=== PATIENT | female | born 1965 | race Caucasian/White ===

== ENCOUNTER 2016-10-26 17:59 | Emergency (ER) | payer BC, OTHER ==
[~2016-10-26] VITALS: Ht 157.5 cm; Wt 69.3 kg
[2016-10-26 18:08] VITALS: TEMP 36.9; Ht 157.5 cm; Wt 69.3 kg
[2016-10-26] MEDS ORDERED: SODIUM CHLORIDE 0.9% 1000ML 1,000 ML IV STA (18:50)
[2016-10-26] MEDS ORDERED: PROCHLORPERAZINE 5 MG/ML 2 ML VIAL IV STA (18:50)
[2016-10-26] MEDS ORDERED: DiphenhydrAMINE HCL 50 MG/ML VIAL IV STA (18:50)
[2016-10-26 20:08] VITALS: BP 148/73; PULSE 77; O2SAT 97
[2016-10-26] MEDS ORDERED: DIPH25CA65 PO (20:15)
[2016-10-26] MEDS ORDERED: CETI10TA84 PO (20:15)
[2016-10-26] MEDS ORDERED: ACET-1256 PO (20:15)
[2016-10-26] MEDS ORDERED: IBUP-1277 PO (20:15)
[2016-10-26] MEDS ORDERED: MONT1TAB3 PO (20:15)
--- NOTE | 2016-10-26 21:38 | EMERGENCY ROOM VISIT NOTE ---
History Report prepared by Ishmael: Tristen Weir Under the Supervision of: Dr. Lemuel Thomason M.D. First contact with patient: 18:42 Chief Complaint: HEADACHE Stated Complaint: VOMITING, MIGRAINE History of Present Illness The patient is a 51 year old female who presents to the Emergency Room with complaints of persistent migraine that started 12 hours ago. The patient describes the discomfort as throbbing and notes that it is on the whole top of her head. The discomfort is worse with light and sound. She also complains of vomiting. The patient denies fever or chance of . She takes prescription extra strength Tylenol for her symptoms but they did not help relieve her discomfort today. The patient has a history of migraine headaches but is not on any medications for them. Source of History: patient Onset: 12 hours ago Position: head Quality: other (throbbing) Timing: other (persistent) Modifying Factors (Worsening): other (light and sound) Associated Symptoms: + vomiting, No fevers Note: Denies: chance of Review of Systems See HPI for pertinent positives & negatives. A total of 10 systems reviewed and were otherwise negative. Family History Cancer Social History Smoking Status: Never Smoker Drug Use: none Marital Status: Housing Status: lives with family Occupation Status: employed Current/Historical Medications Scheduled Acetaminophen (Tylenol), 2 TAB PO Q6 Cetirizine (Zyrtec), 10 MG PO DAILY Diphenhydramine Hcl (Benadryl Allergy), 1 CAP PO HS Ibuprofen (Advil), 200-600 MG PO Q4H Miscellaneous Medications Montelukast Sodium (Singulair), 10 MG PO Allergies Coded Allergies: POLLEN (Verified Allergy, Intermediate, WATERY EYES, CONGESTION (MEHRAN AT TIMES), 10/26/16) Latex1 -Allergic Contact Dermititis (Verified Allergy, Mild, ITCHY SKIN, ) Physical Exam Vital Signs Date Time Temp Pulse Resp B/P Pulse Ox O2 Delivery O2 Flow Rate FiO2 10/26/16 20:08 77 18 148/73 97 10/26/16 18:08 36.9 79 18 132/75 99 Room Air Physical Exam Constitutional: Vital signs reviewed. Eyes: Pupils are equal round reactive to light. Conjunctiva are noninjected. ENT: Pharynx is clear without erythema or exudate. Mucous membranes are moist. Neck supple without meningeal signs. Respiratory: Clear to auscultation bilaterally. Breath sounds are equal bilaterally. Cardiovascular: Regular rate and rhythm. No rubs or gallops. GI: Soft, nondistended and nontender. Bowel sounds are present. Musculoskeletal: No peripheral edema. Integumentary: No cyanosis. Neurologic: The patient is awake and alert. Cranial nerves II-XII are intact. Motor is 5 out of 5 all extremities. Sensation is intact to light touch all extremities. Normal speech. No pronator drift. Psychiatric: Normal affect. Medical Decision & Procedures Medications Administered Medications (Trade) Dose Ordered Sig/Memo Route Start Time Stop Time Status Last Admin Dose Admin Prochlorperazine Edisylate (Compazine Inj) 10 mg NOW STAT IV 10/26/16 18:50 10/26/16 18:52 DC 10/26/16 19:13 10 MG Diphenhydramine HCl 50 mg 50 mg NOW STAT IV 10/26/16 18:50 10/26/16 18:52 DC 10/26/16 19:12 50 MG Sodium Chloride (Nss 1000ml) 1,000 ml @ 999 mls/hr Q1H1M STAT IV 10/26/16 18:50 10/26/16 19:50 DC 10/26/16 19:11 999 MLS/HR ED Course 1830: The patient was evaluated in room C3. A complete history and physical exam was performed. 1850: Ordered NSS 1000 ml @ 999 mls/hr IV, Benadryl Inj 50 mg IV, Compazine 10 mg IV. 1950: Upon reevaluation, the patient appeared to have improvement of her symptoms and said she is feeling much better. I discussed tonight's findings with her. The patient verbalized agreement of the treatment plan. She was discharged home. Medical Decision This is a 51-year-old female who presents with a migraine headache. I did perform a limited focused review of portions of the patient's old chart on the electronic medical record. The patient has had no recent pertinent visits to this hospital. I did evaluate the patient as noted above. Patient is presenting with a migraine headache consistent with her prior migraines. She is neurologically intact. She has no fever. I have no reason to suspect intracranial hemorrhage or meningitis. IV access was established. I did treat the patient with IV normal saline as well as IV Compazine and Benadryl. I did reassess the patient. She does state that she is feeling much better and feels ready for discharge. I did recommend she follow with her doctor to discuss further management of her migraines. Impression Primary Impression: Headache Scribe Attestation The scribe's documentation has been prepared under my direct and personally reviewed by me in its entirety. I confirm that the note above accurately reflects all work, treatment, procedures, and medical decision making performed by me. Departure Information Dispostion Home / Self-Care Referrals No Doctor, Assigned (PCP) Forms HOME CARE DOCUMENTATION FORM, IMPORTANT VISIT INFORMATION Patient Instructions My [facility] Additional Instructions You have been examined and treated today on an emergency basis only. This is not a substitute for, or an effort to provide, complete comprehensive medical care. It is impossible to recognize and treat all injuries or illnesses in a single emergency department visit. It is therefore important that you follow up closely with your physician. Call as soon as possible for an appointment. Return for worsening symptoms or if you develop fever or any other concerning symptoms. Problem Qualifiers Primary Impression: Headache Headache chronicity pattern: acute headache
== END 2016-10-26 20:17 | disposition home or self-care (01) ==
LOC: C.EDB 18:00 → C.EDC 20:17
DX: R51 Headache (principal); R11.10 Vomiting, unspecified

== ENCOUNTER 2017-01-26 08:21 | Emergency (ER) | payer BC ==
[~2017-01-26] VITALS: Ht 157.5 cm; Wt 71.0 kg
[~2017-01-26 08:21] MED LIST: ACET-1256 PO; CETI10TA84 PO; DIPH25CA65 PO; IBUP-1277 PO; MONT1TAB3 PO
[2017-01-26 08:26] VITALS: TEMP 36.4; Ht 157.5 cm; Wt 71.0 kg
[2017-01-26] MEDS ORDERED: DiphenhydrAMINE HCL 50 MG/ML VIAL IV STA (08:57)
[2017-01-26] MEDS ORDERED: PROCHLORPERAZINE 5 MG/ML 2 ML VIAL IV STA (08:57)
[2017-01-26] MEDS ORDERED: SODIUM CHLORIDE 0.9% 1000ML 1,000 ML IV STA (08:57)
--- NOTE | 2017-01-26 09:01 | EMERGENCY ROOM VISIT NOTE ---
History First contact with patient: 08:38 Chief Complaint: HEADACHE Stated Complaint: MIGRANE, DRY HEAVES History of Present Illness The patient is a 51 year old female who presents to the Emergency Room with complaints of headache. The patient states that the headache woke her from sleep this morning around 5:30 AM. She reports a history of migraines and states this feels typical of her migraine headaches. She rates her discomfort a 10/10. She reports nausea and vomiting 3. She reports photophobia and phonophobia. The patient has not been able to keep any of her medication down. The patient states she has never been formally evaluated by a neurologist for her headaches. She states that they have been manageable until the last several months. She denies any fevers. She denies any neck pain or neck stiffness. She denies any chest pain or trouble breathing. She denies any numbness, tingling or weakness. Review of Systems A 10 system review of systems was completed with positives and pertinent negatives listed in the HPI. Past Medical/Surgical History Migraine Family History Cancer Social History Smoking Status: Never Smoker Drug Use: none Marital Status: Housing Status: lives with family Occupation Status: employed Current/Historical Medications Scheduled Cetirizine (Zyrtec), 10 MG PO DAILY Diphenhydramine Hcl (Benadryl Allergy), 1 CAP PO HS Montelukast Sodium (Singulair), 1 TAB PO DAILY Allergies Coded Allergies: POLLEN (Verified Allergy, Intermediate, WATERY EYES, CONGESTION (MEHRAN AT TIMES), 10/26/16) Latex1 -Allergic Contact Dermititis (Verified Allergy, Mild, ITCHY SKIN, ) Physical Exam Vital Signs Date Time Temp Pulse Resp B/P Pulse Ox O2 Delivery O2 Flow Rate FiO2 01/26/17 11:55 80 135/67 100 Room Air 01/26/17 10:09 67 18 119/65 99 Room Air 01/26/17 08:26 36.4 74 18 124/82 100 Room Air Physical Exam VITALS: Vitals are noted on the nurse's note and reviewed by myself. Vital signs stable. The patient is afebrile. GENERAL: This is a 51-year-old female, in no acute distress, nondiaphoretic, well-developed well-nourished. SKIN: The skin was without rashes, erythema, edema, or bruising. There is no tenting of the skin. Capillary reflex less than 2 seconds. HEAD: Normocephalic atraumatic. EARS: External auditory canals clear, tympanic membranes pearly howard without erythema or effusion bilaterally. EYES: Pupils pinpoint. Conjunctivae without injection, sclerae without icterus. Extraocular movements intact. NOSE: Patent, turbinates without inflammation or discharge. No sinus tenderness. MOUTH: Mucous membranes moist. Tonsils are not enlarged. Pharynx without erythema or exudate. Uvula midline. Airway patent. Tongue does not deviate. NECK: Supple without nuchal rigidity. No lymphadenopathy. No thyromegaly. Cervical spine is nontender. No JVD. HEART: Regular rate and rhythm without murmurs gallops or rubs. LUNGS: Clear to auscultation bilaterally without wheezes, rales or rhonchi. No retractions or accessory muscle use. ABDOMEN: Positive bowel sounds x 4. Normal tympanic percussion. Soft, nontender, without masses or organomegaly. Liz sign negative. MUSCULOSKELETAL: No muscle atrophy, erythema, or edema noted. Full range of motion without joint tenderness in all extremities. No tenderness to palpation. Normal gait. Strength 5/5 throughout. NEURO: Patient was alert and oriented to person place and time. Normal sensation to light and sharp touch. Deep tendon reflexes 2+ throughout. No focal neurological deficits. Medical Decision & Procedures ER Provider Diagnostic Interpretation: [~ rep ct add3]] HEAD CTA HISTORY: Headache mental status change TECHNIQUE: Multiaxial CT images of the head were performed both before and after the intravenous administration of contrast to evaluate the major cerebral vessels. Maximum intensity projection images were also obtained. COMPARISON: None. FINDINGS: There is no mass, hematoma, midline shift, or acute infarct. Visualized intracranial internal carotid arteries, distal vertebral arteries, and basilar artery are widely patent. There is no significant stenosis, occlusion, or aneurysm seen within the bilateral ACAs, MCAs, or ornamental ironworker helper. IMPRESSION: No significant stenosis, occlusion, or aneurysm within the [place] of [place]. Negative unenhanced CT scan of brain. Laboratory Results 01/26/17 08:45 Red Blood Count 4.32, Mean Corpuscular Volume 84.7, Mean Corpuscular Hemoglobin 29.9, Mean Corpuscular Hemoglobin Concent 35.2, Mean Platelet Volume 10.4, Neutrophils (%) (Auto) 72.5, Lymphocytes (%) (Auto) 21.2, Monocytes (%) (Auto) 4.3, Eosinophils (%) (Auto) 1.6, Basophils (%) (Auto) 0.2, Neutrophils # (Auto) 6.19, Lymphocytes # (Auto) 1.81, Monocytes # (Auto) 0.37, Eosinophils # (Auto) 0.14, Basophils # (Auto) 0.02 01/26/17 08:45 Test 01/26/17 08:45 White Blood Count 8.55 K/uL (4.8-10.8) Red Blood Count 4.32 M/uL (4.2-5.4) Hemoglobin 12.9 g/dL (12.0-16.0) Hematocrit 36.6 % (37-47) Mean Corpuscular Volume 84.7 fL (80-100) Mean Corpuscular Hemoglobin 29.9 pg (25-34) Mean Corpuscular Hemoglobin Concent 35.2 g/dl (32-36) Platelet Count 247 K/uL (130-400) Mean Platelet Volume 10.4 fL (7.4-10.4) Neutrophils (%) (Auto) 72.5 % Lymphocytes (%) (Auto) 21.2 % Monocytes (%) (Auto) 4.3 % Eosinophils (%) (Auto) 1.6 % Basophils (%) (Auto) 0.2 % Neutrophils # (Auto) 6.19 K/uL (1.4-6.5) Lymphocytes # (Auto) 1.81 K/uL (1.2-3.4) Monocytes # (Auto) 0.37 K/uL (0.11-0.59) Eosinophils # (Auto) 0.14 K/uL (0-0.5) Basophils # (Auto) 0.02 K/uL (0-0.2) RDW Standard Deviation 38.5 fL (36.4-46.3) RDW Coefficient of Variation 12.4 % (11.5-14.5) Immature Granulocyte % (Auto) 0.2 % Immature Granulocyte # (Auto) 0.02 K/uL (0.00-0.02) Anion Gap 6.0 mmol/L (3-11) Est Creatinine Clear Calc Drug Dose 79.9 ml/min Estimated GFR () 104.5 Estimated GFR (Non- 90.2 BUN/Creatinine Ratio 20.0 (10-20) Calcium Level 9.0 mg/dl (8.5-10.1) Total Bilirubin 0.4 mg/dl (0.2-1) Aspartate Amino Transf (AST/SGOT) 25 U/L (15-37) Alanine Aminotransferase (ALT/SGPT) 51 U/L (12-78) Alkaline Phosphatase 73 U/L (45-117) Total Protein 7.3 gm/dl (6.4-8.2) Albumin 3.9 gm/dl (3.4-5.0) Globulin 3.4 gm/dl (2.5-4.0) Albumin/Globulin Ratio 1.1 (0.9-2) Medications Administered Medications (Trade) Dose Ordered Sig/Memo Route Start Time Stop Time Status Last Admin Dose Admin Prochlorperazine Edisylate (Compazine Inj) 10 mg NOW STAT IV 01/26/17 08:57 01/26/17 08:58 DC 01/26/17 09:07 10 MG Diphenhydramine HCl 25 mg 25 mg NOW STAT IV 01/26/17 08:57 01/26/17 08:58 DC 01/26/17 08:57 25 MG Sodium Chloride (Nss 1000ml) 1,000 ml @ 999 mls/hr Q1H1M STAT IV 01/26/17 08:57 01/26/17 09:57 DC 01/26/17 09:07 999 MLS/HR ED Course The patient was seen and examined. Previous visits were reviewed. The patient does not have a fever or leukocytosis. She does not have any significant electrolyte abnormalities. CTA combo of the brain was obtained as above and was unremarkable The patient was hydrated with normal saline She was given 25 mg IV Benadryl and 10 mg IV Compazine with good improvement in her pain. She stated she was feeling well enough to be discharged home. The patient presents to the emergency department with a headache. She has a history of headaches but states the last one she had in October and the headache today has been the most severe. She states she has never had imaging of her brain. I did note that her pupils appear to be pinpoint on examination. Therefore, CT imaging was obtained as above and there is no obvious abnormality. The patient should follow-up with her family doctor as she may need a referral to neurology. She should return with any worsening symptoms. The case was discussed with who agrees with the assessment and treatment plan Medical Decision The differential diagnosis includes: head or neck trauma, cerebrovascular disorders, intracranial lesions, infection,transient ischemic attack (TIA), CVA , seizure, syncope, intracranial mass, intracranial bleeding and vestibular disorders, among others Impression Primary Impression: Headache Departure Information Dispostion Home / Self-Care Condition GOOD Referrals Negrito Chauhan M.D.(MILKA) (PCP) Patient Instructions ED Headache Migraine, My [facility] Additional Instructions Return with worsening symptoms, fevers, weakness, numbness Otherwise, follow up with your family doctor for further evaluation and management Problem Qualifiers Primary Impression: Headache
[2017-01-26 09:05] LABS: BASO % 0.2 %; BASO ABS # 0.02 K/uL (0-0.2); COMPLETE YES; EOS % 1.6 %; HEMATOCRIT 36.6 % (37-47); IG% 0.2 %; LYMPH % 21.2 %; LYMPH ABS # 1.81 K/uL (1.2-3.4); MEAN CELL VOLUME 84.7 fL (80-100); MEAN CORPUSCULAR HEMOGLOBIN 29.9 pg (25-34); MEAN CORPUSCULAR HGB CONC 35.2 g/dl (32-36); MEAN PLATELET VOLUME 10.4 fL (7.4-10.4); MONO % 4.3 %; NEUT % 72.5 %; PLATELET COUNT 247 K/uL (130-400); RED BLOOD COUNT 4.32 M/uL (4.2-5.4); WHITE BLOOD COUNT 8.55 K/uL (4.8-10.8)
[2017-01-26 09:14] LABS: CREATININE 0.76 mg/dl (0.60-1.20); POTASSIUM 3.8 mmol/L (3.5-5.1)
[2017-01-26 09:17] LABS: ALB/GLOB RATIO 1.1 (0.9-2)
[2017-01-26] MEDS ORDERED: OPTIRAY 320 IV PRN (10:30)
--- NOTE | 2017-01-26 11:25 | DIAGNOSTIC IMAGING REPORT ---
HEAD CTA HISTORY: Headache mental status change TECHNIQUE: Multiaxial CT images of the head were performed both before and after the intravenous administration of contrast to evaluate the major cerebral vessels. Maximum intensity projection images were also obtained. COMPARISON: None. FINDINGS: There is no mass, hematoma, midline shift, or acute infarct. Visualized intracranial internal carotid arteries, distal vertebral arteries, and basilar artery are widely patent. There is no significant stenosis, occlusion, or aneurysm seen within the bilateral ACAs, MCAs, or biodiesel technology manager. IMPRESSION: No significant stenosis, occlusion, or aneurysm within the [place]. Negative unenhanced CT scan of brain. Electronically signed by: Luis Angel Craig M.D. 01/26/2017 11:23 AM Dictated Date/Time: 01/26/2017 11:20 AM
[2017-01-26 11:55] VITALS: BP 135/67; PULSE 80; O2SAT 100
[2017-09-15] MEDS ORDERED: MONT1TAB5 PO (15:30)
[2017-09-15] MEDS ORDERED: ALBUAER INH (15:30)
== END 2017-01-26 12:05 | disposition home or self-care (01) ==
LOC: C.EDB 08:22
DX: R51 Headache (principal); Z79.899 Other long term (current) drug therapy; Z91.040 Latex allergy status; Z91.09 Other allergy status, other than to drugs and biological substances; Z80.9 Family history of malignant neoplasm, unspecified